=== PATIENT | male | born 1960 | race Caucasian/White ===

== ENCOUNTER → 2024-02-20 09:21 | Outpatient (REF) | payer OTHER, SELFPAY | LOC: HWRAD 09:21 | PROVIDERS: ATTENDING PHYSICIAN Family Medicine | DX: R10.31 Right lower quadrant pain (principal); N50.811 Right testicular pain | CPT/HCPCS: 76870; 76882; 93976 ==

== ENCOUNTER 2024-05-13 06:17 | Day surgery (SDC) | payer OTHER, SELFPAY ==
[2024-05-07 09:34] VITALS: BMI 27.5
[2024-05-07 10:18] LABS: Hematocrit 41.2 % (39.0-52.0); Mean Corpuscular Hgb 28.3 pg (27.0-31.0); Mean Corpuscular Volume 83.2 fL (80.0-94.0); Platelet Count 238 10^3/uL (130-400); Red Blood Cell Count 4.95 10^6/uL (4.70-6.10); Red Cell Dist. Width 12.3 % (11.5-14.5); White Blood Cell Count 5.4 10^3/uL (4.8-10.8)
[2024-05-07 10:54] LABS: Blood Urea Nitrogen 11 mg/dl (9-20); Calcium 9.2 mg/dl (8.4-10.2); Carbon Dioxide 27 mmol/L (22-30); Chloride 103 mmol/L (98-107); Estimated Creatinine Clearance 104 ml/min; Glucose 118 mg/dl (70-99); Potassium 4.8 mmol/L (3.5-5.1); Sodium 136 mmol/L (135-145); eGFR > 60.00
[2024-05-13] VITALS (9 sets, daily range): BP systolic 118–152; BP diastolic 63–84; BMI 26.2; BMI 27.5
--- NOTE | 2024-05-13 07:24 | HP.FOC2 ---
Focused History & Physical
Chief Complaint
HPI:
Chief Complaint: Right inguinal hernia
HPI / Indication for Planned Procedure: Patient is a 63-year-old male recently seen in outpatient surgical evaluation secondary to right inguinal swelling and discomfort. Examination confirmed the presence of a chronically incarcerated right
inguinal hernia and he presents today for scheduled operative correction.
Relevant Past Medical History: Other (Childhood asthma, borderline DM, retinal tear repaired at [facility])
Relevant Social History: Negative
Relevant Family History: Negative
Relevant Past Surgical History: Positive for (Tonsils and adenoidectomy, laser eye procedure-repair of retinal tear in 2015)
Review of Systems
Review of Pertinent Systems: All Systems Negative
Medication
See Medication form for detailed medications: Yes
Medication List (including Herbals & OTC):
No Meds [No Current Medications] 05/09/24
Medications Reviewed: Yes
Allergies and Reactions
Patient has Allergies: No
Noted Allergies and Reactions:
Allergy/AdvReac Type Severity Reaction Status Date / Time
No Known Allergies Allergy Unverified 05/09/24 13:56
Pertinent Physical Exam
All Other Systems: Negative
Head/Neck: Normal
Lungs: Normal
Heart: Normal
Abdomen: Other (Chronically incarcerated right inguinal hernia)
Extremities: Normal
Neurological: Normal
Diagnosis / Assessment
63-year-old male presenting for scheduled operative correction symptomatic right inguinal hernia; chronically incarcerated
Plan / Procedure
Robotic assisted laparoscopic repair right inguinal hernia with mesh
Anesthesia/Sedation to be done by Anesthesia Provider: Yes
[2024-05-13] MEDS: TYLENOL 1000 MG PO (08:49)
[2024-05-13] MEDS: NORMOSOL-R 1000 IV (09:09)
--- NOTE | 2024-05-13 10:09 | W.SUR.PREOP ---
Pre-Operative Surgical Note
-
I have examined this patient prior to the performance of the scheduled procedure.
The patient's condition is unchanged from the time of the current History and
Physical and the patient is able to undergo the scheduled procedure.
--- NOTE | 2024-05-13 12:34 | W.IMMPOSTOP ---
Addendum entered and electronically signed by Luis A Bryson MD 05/13/24 12:48:
#[id number]
Original Note:
Surgical Immed Post Op Note
-
Primary Surgeon: Adelaide
Assisting Surgeon: Maddie SU
Pre-op Diagnosis: Right inguinal hernia
Post-op Diagnosis: Right inguinal hernia, indirect
Procedure Performed: RAL MARGOT repair right inguinal hernia with mesh; 3D max extra-large mid weight mesh
Anesthesia Type: GETA +0.25% Marcaine with epi
Specimen / Cultures: None
Estimated Blood Loss: 6 mL
Complications: None immediate
Operative Findings: Large right inguinal scrotal hernia but no incarcerated contents. Hernia sac quite adherent to the cord structures with dilated veins but sac carefully/completely reduced. Direct and femoral spaces normal. No lipoma of cord
structures/inguinal canal. 3D max extra-large mid weight mesh repair.
== END 2024-05-13 14:13 | disposition home or self-care (01) ==
LOC: SDS 06:17
PROVIDERS: ATTENDING PHYSICIAN Surgery; FAMILY PHYSICIAN Family Medicine; OTHER PHYSICIAN Urology
DX: K40.90 Unilateral inguinal hernia, without obstruction or gangrene, not specified as recurrent (principal)
CPT/HCPCS: 49505; 36415; 80048; 85027; 93005; C1781

== ENCOUNTER → 2024-07-05 10:06 | Outpatient (REF) | payer OTHER, SELFPAY | LOC: HWRAD 10:06 | PROVIDERS: ATTENDING PHYSICIAN Urology; FAMILY PHYSICIAN Family Medicine | DX: N50.3 Cyst of epididymis (principal) | CPT/HCPCS: 76870; 93976 ==

== ENCOUNTER → 2025-03-03 09:20 | Outpatient (REF) | payer OTHER, SELFPAY | LOC: HWRAD 09:20 | PROVIDERS: ATTENDING PHYSICIAN Urology; FAMILY PHYSICIAN Family Medicine | DX: N50.3 Cyst of epididymis (principal); N50.89 Other specified disorders of the male genital organs | CPT/HCPCS: 76870; 93976 ==

== ENCOUNTER 2025-03-27 06:15 | Day surgery (SDC) | payer OTHER, SELFPAY | END 2025-03-27 10:27 | disposition home or self-care (01) | LOC: GI 06:15 | PROVIDERS: ATTENDING PHYSICIAN Specialist | DX: Z12.11 Encounter for screening for malignant neoplasm of colon (principal); K64.8 Other hemorrhoids; K57.30 Diverticulosis of large intestine without perforation or abscess without bleeding; D12.0 Benign neoplasm of cecum; D12.2 Benign neoplasm of ascending colon; Z86.0101 Personal history of adenomatous and serrated colon polyps | CPT/HCPCS: 45385; 88305 ==